=== PATIENT | male | born 1985 | race Two or more races ===

== ENCOUNTER 2025-08-23 01:35 | Emergency (ER) | payer OTHER ==
[~2025-08-23] VITALS: Ht 170.2 cm; Wt 79.5 kg
[2025-08-23 02:24] LABS: PLATELET COUNT (AUTO) 235 K/uL (150-450); RED BLOOD CELL COUNT(AUTO) 4.76 MIL/uL (4.50-5.90); RED CELL DISTRIBUTION WIDTH 15.9 % (11.5-14.5); WHITE BLOOD COUNT (AUTO) 5.9 K/uL (4.5-11.0)
[2025-08-23 02:32] LABS: CALCIUM, TOTAL 7.9 mg/dL (8.8-10.5); CREATININE 0.71 mg/dL (0.60-1.30); GLOMERULAR FILTR. RATE CALC > 60 mL/min (>60); GLUCOSE,RANDOM 99 mg/dL (70-110); SODIUM SERUM 141 mmol/L (136-145); UREA NITROGEN, BLOOD 4 mg/dL (7-18)
[2025-08-23 02:35] LABS: ALCOHOL, BLOOD (SERUM) 396.0 mg/dL (0-10); ASPARTATE AMINOTRANSFERASE 91.0 U/L (15-37); TOTAL PROTEIN, SERUM 7.7 g/dL (6.4-8.2)
[2025-08-23] MEDS: ONDANSETRON HCL 4 MG/2 ML VIAL IVP ONE (02:38)
[2025-08-23] MEDS: MAGNESIUM SULFATE 2 GM, MVI, ADULT NO.1 WITH VIT K 10 ML, THIAMINE 100 MG, FOLIC ACID 1... IV ONE (02:38)
[2025-08-23 06:00] VITALS: BP 143/86; PULSE 83; RESP 17; TEMP 98.7; O2SAT 96
== END 2025-08-23 06:41 | disposition home or self-care (01) ==
LOC: EMS 01:35
DX: F10.129 Alcohol abuse with intoxication, unspecified (principal); I10 Essential (primary) hypertension; Y90.8 Blood alcohol level of 240 mg/100 ml or more
CPT/HCPCS: 99284; 96365; 96366; 96375; 80048; 80076; 83690; 85025; 36415; G0480; J3490 ×2; J2405; J3411; J3475; J7030